=== PATIENT | male | born 1950 | race Caucasian/White ===

== ENCOUNTER 2017-11-15 09:45 | Emergency (ER) | payer BC ==
[2017-11-15] MEDS ORDERED: cefTRIAXone VIAL(*) 1,000 MG VIAL ONE (10:51)
--- NOTE | 2017-11-15 10:55 | UC ---
Complaint Male HPI - HPI Summary HPI Summary: 67 yo male with dysuria since since yesterday now with shaking chills no n/v/d feels fatigued states that he provided a urine specimen at the [facility] 2 weeks he relates that they were concerned he may have an infection but he wasn't started on antibiotic due to lack of symptoms Has had a valve replaced and stents - History of Current Complaint Chief Complaint: UCGU Stated Complaint: URINARY Time Seen by Provider: 11/15/17 10:23 Hx Obtained From: Patient, Family/Property Controller - Onset/Duration: Sudden Onset, Lasting Days Timing: Constant Severity Initially: Mild Severity Currently: Moderate Pain Intensity: 0 - pain with voiding only Pain Scale Used: 0-10 Numeric Location: Penis Character: Burning Aggravating Factor(s): Voiding Associated Signs And Symptoms: Positive: Fever, Dysuria. Negative: Back Pain, Hematuria, Constipation, Blood in Stool, Rectal Pain, Nausea, Vomiting(# Of Episodes =), Penile Swelling, Penile Discharge - Allergies/Home Medications Allergies/Adverse Reactions: Allergies Allergy/AdvReac Type Severity Reaction Status Date / Time No Known Allergies Allergy Verified 11/15/17 10:35 Home Medications: Home Medications Aspirin 81 mg CHEW TAB* 81 mg PO DAILY 11/15/17 [History Confirmed 11/15/17] Metoprolol Tartrate TAB* [Lopressor TAB*] 12.5 mg PO BID 11/15/17 [History Confirmed 11/15/17] Multivitamins/Minerals TAB* [Theragran/minerals TAB*] 1 tab PO DAILY 11/15/17 [ History Confirmed 11/15/17] Rosuvastatin (NF) [Crestor (NF)] 5 mg PO 1700 11/15/17 [History Confirmed ] Warfarin TAB(*) [Coumadin TAB(*)] 1 dose PO 1700 11/15/17 [History Confirmed ] amLODIPine/Benazepril 10(NF [Lotrel 1020(NF)] 1 cap PO DAILY 11/15/17 [ History Confirmed 11/15/17] PMH/Surg Hx/FS Hx/Imm Hx Previously Healthy: Yes Endocrine History: Dyslipidemia Cardiovascular History: Cardiac Disease, Hypertension Other Cardiovascular History: severe peripheral vascular disease/valve replacement - Surgical History Surgical History: Yes Surgery Procedure, Year, and Place: ankle fusion x 6. neck fusion. Valve replacement and CABG - Family History Known Family History: Positive: Hypertension - Social History Alcohol Use: Occasionally Substance Use Type: None Smoking Status (MU): Never Smoked Tobacco Review of Systems Constitutional: Fever, Chills, Fatigue Skin: Negative Eyes: Negative ENT: Negative Respiratory: Negative Cardiovascular: Negative Gastrointestinal: Negative Genitourinary: Dysuria Motor: Negative Neurovascular: Negative Musculoskeletal: Negative Neurological: Negative Psychological: Negative Is Patient Immunocompromised?: No All Other Systems Reviewed And Are Negative: Yes Physical Exam Triage Information Reviewed: Yes Appearance: Well-Appearing, No Pain Distress, Well-Nourished Vital Signs: Initial Vital Signs Temp 101.1 F 11/15/17 10:23 Pulse 82 11/15/17 10:23 Resp 16 11/15/17 10:23 BP 129/60 11/15/17 10:23 Pulse Ox 94 11/15/17 10:23 Vital Signs Reviewed: Yes Eyes: Positive: Conjunctiva Clear ENT: Negative: Hearing grossly normal, Nasal congestion, Nasal drainage, Trismus , Hoarse voice Neck: Positive: Supple, Nontender Respiratory: Positive: Lungs clear, Normal breath sounds, No respiratory distress, No accessory muscle use Cardiovascular: Positive: RRR. Negative: No Murmur Abdomen Description: Positive: Nontender, No Organomegaly. Negative: Bruit, CVA Tenderness (R), CVA Tenderness (L) Bowel Sounds: Positive: Present Neurological: Positive: Alert Psychological Exam: Normal Skin Exam: Normal Diagnostics - Laboratory Diagnostic Studies Completed/Ordered: U dip (+) protein Re-Evaluation - Re-Evaluation First Eval Re-Evaluation Time: 11:56 Change: Improved Comment: alert and oriented, in no distress VS rechecked Complaint Male Course/Dx - Course Course Of Treatment: PER [facility]: WBC 14. UC : (+) for e.coli (sensitive to all antibiotics). BUN 16/creat 1.0 - Differential Dx/Diagnosis Provider Diagnoses: UTI (febrile) Discharge - Sign-Out/Discharge Documenting (check all that apply): Discharge/Admit/Transfer - Discharge Plan Condition: Stable Disposition: HOME Referrals: Hussain Wilson PA [Primary Care Provider] - - Billing Disposition and Condition Condition: STABLE Disposition: HOME
[2017-11-15] MEDS: cefTRIAXone VIAL(*) 1,000 MG in NS 0.9% 50 ML* 50 ML IVPB ONE ×2 (10:56→10:57)
[2017-11-15 11:50] VITALS: BP 123/63
== END 2017-11-15 12:13 | disposition home or self-care (01) ==
LOC: UCCORT 09:45
DX: N39.0 Urinary tract infection, site not specified (principal)
CPT/HCPCS: 81003; 87086; 96365; 99212; G0463; J0696